=== PATIENT | female | born 1995 ===

== ENCOUNTER 2018-02-11 22:04 | Emergency (ER) | payer SELFPAY ==
[2018-02-11 22:33] VITALS: TEMP 99
--- NOTE | 2018-02-11 23:13 | C.PDOC ---
History Of Present Illness 23 y/o female presents to the ED with 1 day of anterior chest wall discomfort. Pain is digitally and positionally reproducible. Patient denies any associated SOB, dizziness, or palpitations. Admits to heavy lifting of an art kit last week. Also states she vomited bilious material earlier today. Mother is at bedside. Time Seen by Provider: 02/11/18 23:04 Chief Complaint (Nursing): Chest Pain History Per: Patient History/Exam Limitations: no limitations Onset/Duration Of Symptoms: Days (x1) Current Symptoms Are (Timing): Still Present Associated Symptoms: Nausea Past Medical History Reviewed: Historical Data, Nursing Documentation, Vital Signs Vital Signs: Last Vital Signs Temp 99.0 F 02/11/18 22:31 Pulse 100 H 02/11/18 23:33 Resp 18 02/11/18 23:33 BP 121/71 02/11/18 23:33 Pulse Ox 99 02/11/18 23:33 - Medical History PMH: No Chronic Diseases Surgical History: No Surg Hx Family History: States: No Known Family Hx - Social History Hx Alcohol Use: Yes Hx Substance Use: No Review Of Systems Except As Marked, All Systems Reviewed And Found Negative. Constitutional: Negative for: Fever Eyes: Negative for: Vision Change Cardiovascular: Positive for: Chest Pain. Negative for: Palpitations, Light Headedness Respiratory: Negative for: Cough, Shortness of Breath, SOB with Excertion Gastrointestinal: Positive for: Vomiting (x1). Negative for: Nausea, Abdominal Pain Neurological: Negative for: Weakness, Numbness, Incoordination, Headache, Dizziness Physical Exam - Physical Exam Appears: Non-toxic, No Acute Distress Skin: Warm, Dry Head: Atraumatic, Normacephalic Eye(s): bilateral: Normal Inspection Neck: Normal ROM Chest: Tenderness (digitally reproducible pain to bilateral parasternal border, no rash), No Ecchymosis Cardiovascular: Rhythm Regular, No Murmur Respiratory: Normal Breath Sounds, No Accessory Muscle Use, No Rhonchi, No Wheezing Gastrointestinal/Abdominal: Soft, No Tenderness, No Distention Extremity: Bilateral: Atraumatic, Normal Color And Temperature, Normal ROM Pulses: Left Radial: Normal, Right Radial: Normal Neurological/Psych: Oriented x3, Normal Speech ED Course And Treatment ECG: Interpreted By Me, Viewed By Me ECG Rhythm: Sinus Tachycardia ECG Interpretation: Normal Rate From EC O2 Sat by Pulse Oximetry: 100 (RA) Pulse Ox Interpretation: Normal Medical Decision Making Medical Decision Making: Impression: digitally and positionally reproducible parasternal chest wall discomfort, normal EKG c/w Costochondritis Disposition Doctor Will See Patient In The: Office Counseled Patient/Family Regarding: Studies Performed, Diagnosis - Disposition Referrals: [facility] [Outside] [employer] [facility] [Outside] [facility] [Outside] [facility] [Outside] Disposition: HOME/ ROUTINE Disposition Time: 23:12 Condition: GOOD Additional Instructions: chest wall pain: no heavy lifting x 1 week ice packs 1/2 hour per hour, nothing hot, no hot showers Motrin/Advil/Ibuprofen 400-600 mg every 6 hours as needed GERD: GERD dietary precautions Pepcid 20 mg @ night to lower stomach acid Maalox/TUMS as needed 4-5x/day Instructions: Acid Reflux (Gastroesophageal Reflux Disease), Adult (DC), Costochondritis (DC) Forms: [employer] ([place]) - Clinical Impression Clinical Impression: Chest wall discomfort - Scribe Statement The provider has reviewed the documentation as recorded by the Scribe (Brigitte Corona) Provider Attestation: All medical record entries made by the Scribe were at my direction and personally dictated by me. I have reviewed the chart and agree that the record accurately reflects my personal performance of the history, physical exam, medical decision making, and the department course for this patient. I have also personally directed, reviewed, and agree with the discharge instructions and disposition.
[2018-02-11 23:35] VITALS: BP 121/71; PULSE 100; RESP 18
[2018-02-12 00:40] VITALS: O2SAT 100
--- NOTE | 2018-02-12 11:46 | CARD ---
APPROVED REPORT Date of service: 02/11/2018 EKG Measurement Heart [id number] <Conclusion> Sinus tachycardia Nonspecific T wave abnormality Abnormal ECG
== END 2018-02-11 23:43 | disposition home or self-care (01) ==
LOC: C.ER 22:04
DX: R07.89 Other chest pain (principal)